=== PATIENT | female | born 1990 | race Caucasian/White ===

== ENCOUNTER 2018-02-08 11:29 | Emergency (ER) | payer BC, OTHER ==
[~2018-02-08] VITALS: Ht 167.6 cm; Wt 57.1 kg
[~2018-02-08 11:29] MED LIST: BACTRIM DS TAB1 EACH PO; NOHOMEMEDICATIONS; XANAX 0.25 MG0.25 MG PO; ZOFRAN 4 MG ORAL4 MG PO
[2018-02-08 13:12] LABS: BASOPHILS 0.8 % (0.0-2.0); EOSINOPHILS 1.2 % (0.0-3.0); HEMATOCRIT 41.1 % (37.0-47.0); HEMOGLOBIN 14.3 gm/dL (12.0-15.0); LYMPHOCYTES 33.5 % (24.0-44.0); MCH 31.1 pg (26.0-34.0); MCHC 34.7 g/dL (28.0-37.0); MCV 89.6 fL (80.0-100.0); PLATELET COUNT 254 thou/uL (150-400); POLYS 55.5 % (36.0-66.0); RBC 4.58 mil/uL (4.20-5.00); RDW 12.8 % (10.5-14.5); WBC 5.5 thou/uL (4.0-11.0)
[2018-02-08 13:18] LABS: CALCIUM 9.2 mg/dL (8.5-10.1); POTASSIUM 3.8 mmol/L (3.5-5.1)
[2018-02-08 13:23] LABS: ALBUMIN 3.9 g/dL (3.4-5.0); TOTAL BILIRUBIN 0.9 mg/dL (<0.1-1.0)
[2018-02-08] MEDS ORDERED: ZANTAC 150MG T150 MG PO (13:58)
[2018-02-08] MEDS ORDERED: TRAMADOL 50 MG50 MG PO (13:58)
[2018-02-08 14:03] VITALS: BP 122/55
== END 2018-02-08 14:27 | disposition home or self-care (01) ==
LOC: ER 11:29
PROVIDERS: Nurse Practitioner Family
DX: J06.9 Acute upper respiratory infection, unspecified (principal); R10.13 Epigastric pain; Z88.8 Allergy status to other drugs, medicaments and biological substances; J45.909 Unspecified asthma, uncomplicated